=== PATIENT | male | born 1995 | race Caucasian/White ===

== ENCOUNTER 2016-05-16 17:01 | Emergency (ER) | payer BC ==
[2016-05-16 17:18] VITALS: BP 124/94; PULSE 66; RESP 16; TEMP 98.8; O2SAT 97
--- NOTE | 2016-05-16 17:51 | UCPHY ---
H & P Time Seen by Provider: 05/16/16 17:23 Patient Type: New HPI/ROS: Chief complaint: drainage of the left eye HPI: This is a [employer] student who reports putting his contacts in this morning at which time he was having no trouble with his eye whatsoever. He is a daily wear contacts have been changed in switched out a week or 2 ago. He takes med every night. He had no trouble this morning. As the course of the day while walking started a little discharge in the eye neck certainly was not cloudy or runny. He thereby took his contact lenses out. He is now wearing his prescription lenses. He denies foreign body type activity Review of systems: Constitutional - no fevers or chills. Eyes - no discharge, or injection ENT - he is a bit of runny nose but no change in hearing Respiratory - No Shortness of breath, phlegm, wheezing or pleuritic chest pain. The cough is dry Immunological - no swelling or lymphadenopathy Smoking Status: Unknown if ever smoked Physical Exam: General Appearance: Alert, no distress. Afebrile. Normal phonation. No respiratory distress. Gaurding gaze when lights introduced. Though photosensitive, not truly photophobic. Eyes: Pupils equal and round no pallor or injection. No icterus. Lids without changes. No ptosis. [Mild] erythema of bulbar and eyelid conjunctival surface without flare or limbal predominance. No spasm or pain with light. No preauricular nodes. Slit Lamp: Deep, clear quiet anterior chamber without cells or flare. No hyphema or hypopion or ulcer. Lower seen: Mild degree of uptake in the lower nasal quadrant of the streaky nature not compatible foreign body but more care at a conjunctivitis ENT, Mouth: Mucous membranes moist. Pharynx without erythema or exudate. TM Clear. Sinuses nontender. Neck: No adenopathy. Supple. Neurological: Ox3. Gait nl. Skin: Warm and dry, no rashes. Psych: Calm. Constitutional: Initial Vital Signs Temperature (C) 37.1 C 05/16/16 17:05 Heart Rate 66 05/16/16 17:05 Respiratory Rate 16 05/16/16 17:05 Blood Pressure 124/94 H 05/16/16 17:05 O2 Sat (%) 97 05/16/16 17:05 O2 Delivery Mode Room Air Allergies/Adverse Reactions: Penicillins Allergy (Verified 05/16/16 17:14) Home Medications: Medication Instructions Recorded Polymyxin B Sulf/Trimethoprim 10 ml OP Q4 #0 drops 05/16/16 [Polymyxin B-Tmp Eye Drops] Medical Decision Making ED Course/Re-evaluation: His findings of uptake both corrected interval viral etiology. He will consider going on the antibiotic only gets worse Differential Diagnosis: Diagnostic considerations include, but are not limited to, the following: Conjunctivitis, blepharitis, foreign body, corneal ulcer, iritis, acute glucoma. Departure - Departure Disposition: Home, Routine, Self-Care Clinical Impression: Keratoconjunctivitis due to Adenovirus Condition: Good Instructions: Conjunctivitis (ED) Additional Instructions: Keep from others Your contagious by respiratory droplet No contact lens wear for 2 weeks See woods overseer in 5 days time if not all better Referrals: NONE *PRIMARY CARE P,. [Primary Care Provider] - As per Instructions Lizandro Hernandez MD [Medical Doctor] - As per Instructions Prescriptions: Polymyxin B Sulf/Trimethoprim [Polymyxin B-Tmp Eye Drops] 10 ml OP Q4 #0 drops - PQRS PQRS Measurement: Not applicable
== END 2016-05-16 18:20 | disposition home or self-care (01) ==
LOC: CED 17:01
DX: B30.0 Keratoconjunctivitis due to adenovirus (principal)
CPT/HCPCS: 99203-PO; G0463-PO